=== PATIENT | female | born 1960 | race Two or more races ===

== ENCOUNTER 2018-11-16 16:34 | Emergency (ER) | payer OTHER ==
[~2018-11-16] VITALS: Ht 162.6 cm; Wt 83.9 kg
[~2018-11-16 16:34] MED LIST: LOP2C PO; PROM25TA5 OR
[2018-11-16 16:55] VITALS: BP 166/93
[2018-11-16] MEDS ORDERED: SODIUM CHLORIDE 0.9% 1,000 ML IVB ONE (17:39)
[2018-11-16] MEDS ORDERED: PANTOPRAZOLE 40 MG/10 ML VIAL IV ONE (17:45)
[2018-11-16] MEDS ORDERED: ONDANSETRON HCL 4 MG/2 ML VIAL IV ONE (17:45)
[2018-11-16 17:54] LABS: Basophils # (auto) 0.1 uL; Eosinophils # (auto) 0.1 uL; Eosinophils % (auto) 0.8 % (0.0-7.0); Hematocrit 41.1 % (36.0-46.0); Hemoglobin 14.5 g/dL (12.2-16.2); Lymphocytes % (auto) 24.4 % (10.0-50.0); Mean Corpuscular Hemoglobin 32.7 pg (28.0-32.0); Mean Corpuscular Hgb Conc. 35.2 g/dL (32.0-36.0); Mean Corpuscular Volume 92.8 fL (80.0-100.0); Monocytes # (auto) 0.8 uL; Monocytes % (auto) 9.2 % (0.0-12.0); Neutrophils # (auto) 5.4 uL; Neutrophils % (auto) 64.6 % (37.0-80.0); Nucleated Red Blood Cells % 0.1 %; Platelet Count (auto) 228 10^3/uL (140-450); Red Blood Cells 4.43 10^6/uL (4.0-5.20); Red Cell Distribution Width 12.3 % (11.8-14.3); White Blood Cell 8.3 10^3/uL (4.4-10.8)
[2018-11-16 18:03] LABS: Magnesium 1.7 mg/dL (1.6-2.6)
[2018-11-16 18:05] LABS: Anion Gap 9 (5-15); Blood Urea Nitrogen 9 mg/dL (7-18); Calcium 8.6 mg/dL (8.5-10.1); Carbon Dioxide 23 mmol/L (21-32); Chloride 104 mmol/L (98-107); Glucose 115 mg/dL (74-106); Potassium 3.3 mmol/L (3.5-5.1); Sodium 136 mmol/L (136-145)
[2018-11-16 18:12] LABS: Alanine Aminotransferase 50 U/L (13-56); Alkaline Phosphatase 81 U/L (45-117); Aspartate Aminotransferase 64 U/L (15-37); BUN/Creatinine Ratio 12.2; Bilirubin, Total 1.5 mg/dL (0.2-1.0); GFR African American 103 mL/min; GFR Non-African American 85 mL/min
[2018-11-16 18:16] LABS: INR 0.96 (0.9-1.15); Partial Thromboplastin Time 25.3 sec (23.78-33.04); Prothrombin Time 10.3 sec (9.27-12.13)
[2018-11-16] MEDS ORDERED: POTASSIUM CHL 20 Meq TABLET PO ONE (21:00)
== END 2018-11-16 22:00 | disposition home or self-care (01) ==
LOC: EDUNIT# 16:34 → EDBD 16:34 → ER 16:38
DX: K52.9 Noninfective gastroenteritis and colitis, unspecified (principal); R07.89 Other chest pain; K76.0 Fatty (change of) liver, not elsewhere classified; E87.6 Hypokalemia; E78.5 Hyperlipidemia, unspecified; Z88.2 Allergy status to sulfonamides; Z90.710 Acquired absence of both cervix and uterus
CPT/HCPCS: 36415; 71045; 74176; 76705; 80053; 82150; 83690; 83735; 84484; 85025; 85379; 85610; 85730; 93005; 94761; 96361; 96374; 96375; 99284; C9113; J2405